=== PATIENT | male | born 1935 | race Caucasian/White ===

== ENCOUNTER → 2022-07-12 | Outpatient (CLI) | payer MEDICARE ==
--- NOTE | 2022-07-12 16:03 | US ---
EXAMINATION TYPE: US kidneys/renal and bladder DATE OF EXAM: 07/12/2022 COMPARISON: NONE CLINICAL HISTORY: R31.1 MICROSCOPIC HEMATURIA. Hematuria EXAM MEASUREMENTS: Right Kidney: 9.8 x 5.9 x 4.1 cm Left Kidney: 10.7 x 5.5 x 4.4 cm Right Kidney: No hydronephrosis or masses seen Left Kidney: No hydronephrosis or masses seen Bladder: wnl Bilateral Jets seen: Yes There is no evidence for hydronephrosis at this point in time. No nephrolithiasis is seen. No nolvia s are identified. The urinary bladder is anechoic. Bilateral ureteral jets are seen. IMPRESSION: No hydronephrosis or nephrolithiasis.
== END | disposition home or self-care (01) ==
LOC: RADUSWWP 14:43
PROVIDERS: ATTEND Urology
DX: R31.1 Benign essential microscopic hematuria (principal)
CPT/HCPCS: 76770

== ENCOUNTER 2022-12-02 13:40 | Observation (INO) | payer MEDICARE ==
--- NOTE | 2022-12-02 14:11 | ED ---
General Adult HPI - General Chief complaint: Shortness of Breath Stated complaint: Left Lung Fluid Time Seen by Provider: 12/02/22 13:59 Source: patient, family, RN notes reviewed Mode of arrival: wheelchair Limitations: no limitations - History of Present Illness Initial comments: Patient is a pleasant 87-year-old male presenting to the emergency department with dyspnea. Onset of symptoms was around 6 months ago, progressively worsening. Patient did have outpatient abdominal CT followed by chest CT with concern for effusions, more so on the left side. Patient does have mild cough. No fevers. No chest pain. - Related Data Allergies Allergy/AdvReac Type Severity Reaction Status Date / Time No Known Allergies Allergy Verified 12/02/22 13:52 Review of Systems ROS Statement: Those systems with pertinent positive or pertinent negative responses have been documented in the HPI. ROS Other: All systems not noted in ROS Statement are negative. Constitutional: Denies: fever Eyes: Denies: eye pain ENT: Denies: ear pain Respiratory: Reports: as per HPI, cough, dyspnea Cardiovascular: Denies: chest pain Endocrine: Reports: fatigue Gastrointestinal: Denies: abdominal pain Genitourinary: Denies: dysuria Musculoskeletal: Denies: back pain Skin: Denies: rash Neurological: Denies: weakness Past Medical History Past Medical History: Cancer, Hyperlipidemia, Hypertension Additional Past Medical History / Comment(s): skin cancer History of Any Multi-Drug Resistant Organisms: None Reported Past Surgical History: Hernia Repair Additional Past Surgical History / Comment(s): throat, 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 Absent: tenderness Extremities exam: Present: normal inspection. Absent: pedal edema, calf tenderness Neurological exam: Present: alert Psychiatric exam: Present: normal affect, normal mood Skin exam: Present: normal color Course Vital Signs 12/02/22 12/02/22 13:47 14:22 Temperature 98.6 F Pulse Rate 89 Respiratory 22 22 Rate Blood Pressure 124/65 O2 Sat by Pulse 97 Oximetry Medical Decision Making - Medical Decision Making Was pt. sent in by a medical professional or institution (KARENA Hammond, ACTUARIAL CONSULTANT, urgent care, hospital, or skilled nursing...) When possible be specific @ -Patient was sent over by Dr. Dodd Did you speak to anyone other than the patient for history (EMS, parent, family, police, friend...)? What history was obtained from this source @ -I did speak with Dr. Dodd regarding patient's presentation as well as recent CT result. He did fax CT report over and this was attached to chart. Did you review nursing and triage notes (agree or disagree)? Why? @ -I reviewed and agree with nursing and triage notes Were old charts reviewed (outside hosp., previous admission, EMS record, old EKG, old radiological studies, urgent care reports/EKG's, skilled nursing records)? Report findings @ -CT report reviewed from previous outsides facility Differential Diagnosis (chest pain, altered mental status, abdominal pain women, abdominal pain men, vaginal bleeding, weakness, fever, dyspnea, syncope, headache, dizziness, GI bleed, back pain, seizure, CVA, palpatations, mental health)? @ -Differential Dyspnea: Coronary syndrome, arrhythmia, tamponade, asthma, COPD, pulmonary embolism, pneumonia, pneumothorax, pulmonary effusion, anaphylaxis, diabetic ketoacidosis, flailed chest, pulmonary contusion, diaphragmatic rupture, anemia, neuromuscular , this is not meant to be an all-inclusive list. EKG interpreted by me (3pts min.). @ -As above X-rays interpreted by me (1pt min.). @ -Chest x-ray shows left greater than right effusion CT interpreted by me (1pt min.). @ -None done U/S interpreted by me (1pt. min.). @ -None done What testing was considered but not performed or refused? (CT, X-rays, U/S, labs)? Why? @ -None What meds were considered but not given or refused? Why? @ -None Did you discuss the management of the patient with other professionals (professionals i.e. KARENA Hammond, ACTUARIAL CONSULTANT, lab, RT, psych nurse, home health care social worker, legal operations manager, teacher, employee service officer, case planner)? Give summary @ -Case was discussed with Dr. Dodd prior to arrival. Case also discussed with Dr. sheet, who will admit covering Dr. Rivers, who admits for Dr. Dodd Was smoking cessation discussed for >3mins.? @ -No Was critical care preformed (if so, how long)? @ -No Were there social determinants of health that impacted care today? How? (Homelessness, low income, unemployed, alcoholism, drug addiction, transportation, low edu. Level, literacy, decrease access to med. care, nursing home, rehab)? @ -No Was there de-escalation of care discussed even if they declined (Discuss DNR or withdrawal of care, Hospice)? DNR status @ -No What co-morbidities impacted this encounter? (DM, HTN, Smoking, COPD, CAD, Cancer, CVA, ARF, Chemo, Hep., AIDS, mental health diagnosis, sleep apnea, morbid obesity)? @ -None Was patient admitted / discharged? Hospital course, mention meds given and route, prescriptions, significant lab abnormalities, going to OR and other pertinent info. @ -Patient is made aware of plan as well as consult pending with pulmonary Undiagnosed new problem with uncertain prognosis? @ -No Drug Therapy requiring intensive monitoring for toxicity (Heparin, Nitro, Insulin, Cardizem)? @ -No Were any procedures done? @ -No Diagnosis/symptom? @ -Pleural effusions Acute, or Chronic, or Acute on Chronic? @ -Acute Uncomplicated (without systemic symptoms) or Complicated (systemic symptoms)? @ -default Side effects of treatment? @ -No Exacerbation, Progression, or Severe Exacerbation? @ -No Poses a threat to life or bodily function? How? (Chest pain, [place], CA, pneumonia, PE, COPD, DKA, ARF, appy, cholecystitis, CVA, Diverticulitis, Homicidal, Suicidal, threat to staff... and all critical care pts) @ -No - Lab Data Result diagrams: 12/02/22 14:24 12/02/22 14:24 Lab Results 12/02/22 12/02/22 12/02/22 Range/Units 14:24 14:24 14:24 WBC 12.6 H (3.8-10.6) k/uL RBC 3.59 L (4.30-5.90) m/uL Hgb 10.3 L (13.0-17.5) gm/dL Hct 31.8 L (39.0-53.0) % MCV 88.6 (80.0-100.0) fL MCH 28.7 (25.0-35.0) pg MCHC 32.4 (31.0-37.0) g/dL RDW 17.2 H (11.5-15.5) % Plt Count 300 (150-450) k/uL MPV 8.4 Neutrophils % 64 % Lymphocytes % 6 % Monocytes % 27 % Eosinophils % 2 % Basophils % 0 % Neutrophils # 8.1 H (1.3-7.7) k/uL Lymphocytes # 0.7 L (1.0-4.8) k/uL Monocytes # 3.4 H (0-1.0) k/uL Eosinophils # 0.2 (0-0.7) k/uL Basophils # 0.0 (0-0.2) k/uL Manual Slide Review Performed Hypochromasia Moderate Anisocytosis Slight PT 11.8 (9.0-12.0) sec INR 1.1 (<1.2) APTT 27.2 (22.0-30.0) sec Sodium 130 L (137-145) mmol/L Potassium 4.5 (3.5-5.1) mmol/L Chloride 95 L (98-107) mmol/L Carbon Dioxide 27 (22-30) mmol/L Anion Gap 8 mmol/L BUN 15 (9-20) mg/dL Creatinine 0.86 (0.66-1.25) mg/dL Est GFR (CKD-EPI)AfAm 89 (>60 ml/min/1.73 sqM) Est GFR (CKD-EPI)NonAf 77 (>60 ml/min/1.73 sqM) Glucose 112 H (74-99) mg/dL Plasma Lactic Acid [place] (0.7-2.0) mmol/L Calcium 8.8 (8.4-10.2) mg/dL Magnesium 2.0 (1.6-2.3) mg/dL Total Bilirubin 0.5 (0.2-1.3) mg/dL AST 21 (17-59) U/L ALT 18 (4-49) U/L Alkaline Phosphatase 74 (38-126) U/L Troponin I (0.000-0.034) ng/mL NT-Pro-B Natriuret Pep pg/mL Total Protein 6.3 (6.3-8.2) g/dL Albumin 3.4 L (3.5-5.0) g/dL 12/02/22 12/02/22 12/02/22 Range/Units 14:24 14:24 14:24 WBC (3.8-10.6) k/uL RBC (4.30-5.90) m/uL Hgb (13.0-17.5) gm/dL Hct (39.0-53.0) % MCV (80.0-100.0) fL MCH (25.0-35.0) pg MCHC (31.0-37.0) g/dL RDW (11.5-15.5) % Plt Count (150-450) k/uL MPV Neutrophils % % Lymphocytes % % Monocytes % % Eosinophils % % Basophils % % Neutrophils # (1.3-7.7) k/uL Lymphocytes # (1.0-4.8) k/uL Monocytes # (0-1.0) k/uL Eosinophils # (0-0.7) k/uL Basophils # (0-0.2) k/uL Manual Slide Review Hypochromasia Anisocytosis PT (9.0-12.0) sec INR (<1.2) APTT (22.0-30.0) sec Sodium (137-145) mmol/L Potassium (3.5-5.1) mmol/L Chloride (98-107) mmol/L Carbon Dioxide (22-30) mmol/L Anion Gap mmol/L BUN (9-20) mg/dL Creatinine (0.66-1.25) mg/dL Est GFR (CKD-EPI)AfAm (>60 ml/min/1.73 sqM) Est GFR (CKD-EPI)NonAf (>60 ml/min/1.73 sqM) Glucose (74-99) mg/dL Plasma Lactic Acid [place] 1.1 (0.7-2.0) mmol/L Calcium (8.4-10.2) mg/dL Magnesium (1.6-2.3) mg/dL Total Bilirubin (0.2-1.3) mg/dL AST (17-59) U/L ALT (4-49) U/L Alkaline Phosphatase (38-126) U/L Troponin I <0.012 (0.000-0.034) ng/mL NT-Pro-B Natriuret Pep 647 pg/mL Total Protein (6.3-8.2) g/dL Albumin (3.5-5.0) g/dL Disposition Clinical Impression: Pleural effusion Disposition: ADMITTED IP TO THIS HOSP Is patient prescribed a controlled substance at d/c from ED?: No Referrals: Robert Dodd MD [Primary Care Provider] - 1-2 days Time of Disposition: 15:49
[2022-12-02 14:48] LABS: Anisocytosis Slight; Basophils % (A) 0 %; Eosinophils # (A) 0.2 k/uL (0-0.7); Eosinophils % (A) 2 %; HCT 31.8 % (39.0-53.0); HGB 10.3 gm/dL (13.0-17.5); Hypochromasia Moderate; Lymphocytes # (A) 0.7 k/uL (1.0-4.8); Lymphocytes % (A) 6 %; MCH 28.7 pg (25.0-35.0); MCHC 32.4 g/dL (31.0-37.0); MCV 88.6 fL (80.0-100.0); Mean Platelet Volume 8.4; Monocytes # (A) 3.4 k/uL (0-1.0); Monocytes % (A) 27 %; Neutrophils # (A) 8.1 k/uL (1.3-7.7); Neutrophils % (A) 64 %; Platelet Count 300 k/uL (150-450); RBC 3.59 m/uL (4.30-5.90); RDW 17.2 % (11.5-15.5); WBC 12.6 k/uL (3.8-10.6)
--- NOTE | 2022-12-02 14:48 | XR ---
EXAMINATION TYPE: XR chest 2V DATE OF EXAM: 12/02/2022 COMPARISON: NONE TECHNIQUE: PA and lateral views submitted. HISTORY: Difficulty breathing FINDINGS: Bilateral consolidation and small pleural effusion on the right and moderate on the left. Heart is pr ominent and there is atherosclerotic change of aorta. No pneumothorax. There is arthropathy of the sh oulders. Hypertrophic and degenerative change of the spine. IMPRESSION: 1. Bilateral areas of consolidation with a small right and moderate-sized left pleural effusion.
[2022-12-02 14:53] LABS: INR 1.1 (<1.2); Partial Thromboplastin Time 27.2 sec (22.0-30.0); Prothrombin Time 11.8 sec (9.0-12.0)
[2022-12-02 15:05] LABS: ALT 18 U/L (4-49); AST 21 U/L (17-59); African American GFR (CKD) 89 (>60 ml/min/1.73 sqM); Albumin 3.4 g/dL (3.5-5.0); Alkaline Phosphatase 74 U/L (38-126); Anion Gap 8 mmol/L; Blood Urea Nitrogen 15 mg/dL (9-20); Calcium 8.8 mg/dL (8.4-10.2); Carbon Dioxide 27 mmol/L (22-30); Chloride 95 mmol/L (98-107); Glucose 112 mg/dL (74-99); Non-African American GFR(CKD) 77 (>60 ml/min/1.73 sqM); Potassium 4.5 mmol/L (3.5-5.1); Sodium 130 mmol/L (137-145); Total Bilirubin 0.5 mg/dL (0.2-1.3); Total Protein 6.3 g/dL (6.3-8.2)
[2022-12-02] MEDS ORDERED: NALOXONE 0.4 MG/ML 1 ML VIAL IV PRN (15:49)
[2022-12-02] MEDS ORDERED: ACETAMINOPHEN TAB 325 MG TAB PO PRN (15:49)
[2022-12-02] MEDS: carvediloL 3.125 MG TAB PO SCH (20:48)
[2022-12-02] MEDS: AZELASTINE 137MCG/SPRAY NASAL SCH (20:48)
[2022-12-02] MEDS ORDERED: PRAVASTATIN SODIUM 40 MG TAB PO SCH (21:00)
[2022-12-03] MEDS: carvediloL 3.125 MG TAB PO SCH (06:34)
[2022-12-03] MEDS ORDERED: LORATADINE 10 MG TAB PO SCH (09:00)
[2022-12-03] MEDS ORDERED: ASCORBIC ACID 500 MG TAB PO SCH (09:00)
[2022-12-03] MEDS ORDERED: NON FORMULARY DRUG (Omega-3 Fatty Acids [Omega-3] 1,000 MG Capsule) PO SCH (09:00)
[2022-12-03] MEDS ORDERED: LOSARTAN 50 MG TAB PO SCH (09:00)
[2022-12-03] MEDS: TAMSULOSIN 0.4 MG CAP.ER.24H PO SCH ×2 (09:07)
[2022-12-03] MEDS: AZELASTINE 137MCG/SPRAY NASAL SCH (09:07)
[2022-12-03] MEDS ORDERED: ALPRAZolam 0.25 MG TAB PO PRN (10:25)
[2022-12-03 11:47] LABS: HCT 30.9 % (39.6-50.0); HGB 9.5 d/dL (12.0-15.0); MCH 27.7 pg (27.0-32.0); MCHC 30.7 d/dL (32.0-37.0); MCV 90.1 FL (80.0-97.0); Mean Platelet Volume 10.5 FL (9.5-12.2); NRBC Per 100 WBC 0 X 10*3/uL (0.00-0.01); Platelet Count 288 X 10*3/uL (140-440); RBC 3.43 X 10*6/uL (4.40-5.60); RDW 17.4 % (11.5-14.5); WBC 12.12 X 10*3/uL (4.50-10.00)
--- NOTE | 2022-12-03 12:18 | P.CNPUL ---
History of Present Illness Consult date: 12/03/22 Reason for consult: dyspnea, pleural effusion History of present illness: 87-year-old male patient presented to us because of worsening shortness of breath. This been going on for the past 6 months. He initially presented to his primary care physician and the patient was referred for the CAT scan of the chest that showed prominent bilateral pulmonary nodules and bilateral pleural effusion largest on the left. The patient had large masses in the lung the largest measuring 3.5 x 6.5 cm in size in the right lung. Several other pulmonary masses were also noted bilaterally. The patient is a nonsmoker. He has previous history of CML. No hemoptysis. No pleurisy. He has been expressing progressive increase in shortness of breath. He has undergone previous colonoscopy for cancer screening. No issues with urination. No nausea. No vomiting. No diarrhea. No abdominal pain. No chest pain. The patient was referred to the emergency and currently is hospitalized for further care. He is currently on 2 L of Oxymizer nasal cannula to maintain a saturation above 90%.His WBC count is at 12.1, hemoglobin was at 9.5 and a platelet count of 288. Sodium is at 1:30, BUN is at 15 with a creatinine of 0.8. Normal LFTs. Normal troponins. Review of Systems Constitutional: Denies chills, Denies fever Eyes: denies as per HPI, denies blurred vision, denies bulging eye, denies decreased vision, denies diplopia, denies discharge, denies dry eye, denies irritation, denies itching, denies pain, denies photophobia, denies loss of peripheral vision, denies loss of vision, denies tunnel vision/blind spots Ears: deny: decreased hearing, ear discharge, earache, tinnitus Ears, nose, mouth and throat: Reports as per HPI Breasts: absent: as per HPI, gynecomastia Cardiovascular: Reports decreased exercise tolerance, Reports dyspnea on exertion Respiratory: Reports dyspnea Gastrointestinal: Reports as per HPI Genitourinary: Reports as per HPI Musculoskeletal: Reports as per HPI Musculoskeletal: absent: ankle pain, ankle stiffness, ankle swelling Integumentary: Reports as per HPI Neurological: Reports as per HPI Psychiatric: Reports as per HPI Endocrine: Reports as per HPI Hematologic/Lymphatic: Reports as per HPI Allergic/Immunologic: Reports as per HPI Past Medical History Past Medical History: Cancer, Hyperlipidemia, Hypertension Additional Past Medical History / Comment(s): skin cancer, CML -leukemia, pt states "irratic heart beat at times" History of Any Multi-Drug Resistant Organisms: None Reported Past Surgical History: Hernia Repair Additional Past Surgical History / Comment(s): 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 Past Psychological History: No Psychological Hx Reported Smoking Status: Former smoker Past Drug Use History: None Reported Medications and Allergies Home Medications Medication Instructions Recorded Confirmed Type Ascorbic Acid [Vitamin C] 1,000 mg PO DAILY 12/02/22 12/02/22 History Aspirin 81 mg PO DAILY 12/02/22 12/02/22 History Azelastine HCl [Astelin Nasal 2 spray NASAL BID 12/02/22 12/02/22 History [place]] Cholecalciferol (Vitamin D3) 75 mcg PO DAILY 12/02/22 12/02/22 History [Vitamin D3 (3000 Iu)] Cyanocobalamin (Vitamin B-12) 1,000 mcg PO DAILY 12/02/22 12/02/22 History [Vitamin B-12] Loratadine [Claritin] 10 mg PO DAILY 12/02/22 12/02/22 History Losartan [Cozaar] 50 mg PO DAILY 12/02/22 12/02/22 History Meloxicam [Mobic] 15 mg PO DAILY 12/02/22 12/02/22 History Multivit-Mins/Iron/Folic/Lycop 1 tab PO DAILY 12/02/22 12/02/22 History [Centrum Men's Tablet] [place]-3 Fatty Acids [[place]-3] 1,000 mg PO DAILY 12/02/22 12/02/22 History Pravastatin Sodium [Pravachol] 40 mg PO HS 12/02/22 12/02/22 History Tamsulosin [Flomax] 0.4 mg PO DAILY 12/02/22 12/02/22 History Zinc Gluconate [Zinc] 50 mg PO DAILY 12/02/22 12/02/22 History carvediloL [Coreg] 3.125 mg PO BID 12/02/22 12/02/22 History Allergies Allergy/AdvReac Type Severity Reaction Status Date / Time No Known Allergies Allergy Verified 12/02/22 16:21 Physical Exam Vitals: Vital Signs Temp Pulse Pulse Resp BP BP Pulse Ox 12/03/22 06:33 97.9 F 85 19 143/72 95 12/03/22 02:00 98.0 F 86 18 144/66 94 L 12/02/22 19:55 97.8 F 86 18 158/70 97 12/02/22 19:04 78 18 124/87 94 L 12/02/22 17:30 100 28 H 166/86 95 12/02/22 16:47 88 22 143/75 94 L 12/02/22 14:22 22 12/02/22 13:47 98.6 F 89 22 124/65 97 Intake and Output 12/02/22 12/03/22 12/03/22 22:59 06:59 14:59 Output Total 300 150 Balance -300 -150 Output: Urine 300 150 Other: Voiding Method Toilet Urinal # Voids 0 Weight 73.936 kg Calm and comfortable, a bit anxious currently on 2 L of oxygen by nasal cannula Head exam was generally normal. There was no scleral icterus or corneal arcus. Mucous membranes were moist. Neck was supple and without jugular venous distension, thyromegaly, or carotid bruits. Carotids were easily palpable bilaterally. There was no adenopathy. Lungs sounds are diminished on the left base along with her was to percussion. There is also diminished breath on the right lung base. Cardiac exam revealed the PMI to be normally situated and sized. The rhythm was regular and no extrasystoles were noted during several minutes of auscultation. The first and second heart sounds were normal and physiologic splitting of the second heart sound was noted. There were no murmurs, rubs, clicks, or gallops. Abdominal exam revealed normal bowel sounds. The abdomen was soft, non-tender, and without masses, organomegaly, or appreciable enlargement of the abdominal aorta. Examination of the extremities revealed easily palpable radial, femoral and pedal pulses. There was no cyanosis, clubbing or edema. Examination of the skin revealed no evidence of significant rashes, suspicious appearing nevi or other concerning lesions. Results - Laboratory Findings CBC and BMP: 12/03/22 06:02 12/02/22 14:24 PT/INR, D-dimer PT 11.8 sec (9.0-12.0) 12/02/22 14:24 INR 1.1 (<1.2) 12/02/22 14:24 Abnormal lab findings: Abnormal Labs 12/02/22 12/02/22 12/03/22 14:24 14:24 06:02 WBC 12.6 H 12.12 H RBC 3.59 L 3.43 L Hgb 10.3 L 9.5 L Hct 31.8 L 30.9 L MCHC 30.7 L RDW 17.2 H 17.4 H Neutrophils # 8.1 H Lymphocytes # 0.7 L Monocytes # 3.4 H Sodium 130 L Chloride 95 L Glucose 112 H Albumin 3.4 L - Diagnostic Findings Chest x-ray: image reviewed Assessment and Plan Plan: Bilateral lung masses largest in the right lung measuring up to 6.5 cm the patient has multiple other smaller nodules bilaterally consistent with metastatic disease. Bilateral pleural effusion left more than right Acute hypoxic respiratory failure secondary to above Shortness of breath secondary to above History of CML Hypertension Hyperlipidemia History of skin cancer Plan Proceed with a diagnostic and therapeutic thoracentesis of the left lung We'll send the pleural fluid for cytology and analysis Highly suspicious for malignancy. We'll make further recommendations based on the pleural fluid cytology. In the pleural fluid results be negative, he may need a bronchoscopic biopsy. This can be done on outpatient basis.
--- NOTE | 2022-12-03 12:18 | P.PCN ---
Date of Procedure: 12/03/22 Preoperative Diagnosis: Left-sided pleural effusion Postoperative Diagnosis: Left-sided pleural effusion Procedure(s) Performed: Left-sided thoracentesis Anesthesia: local Surgeon: Cami Loco Pathology: other Condition: stable Disposition: floor Operative Findings: A time out was performed and the chest x-ray was reviewed, the appropriate side was confirmed and marked. My hands were washed immediately prior to the procedure. I wore a surgical cap, mask with protective eyewear, sterile gown and sterile gloves throughout the procedure. The patient was prepped and draped in a sterile manner using chlorhexidine scrub after the appropriate level was percussed and confirmed by ultrasound. 1% lidocaine was used to anesthesize the skin, subcutaneous tissue, superior aspect of the rib periosteum and parietal pleura. A finder needle was then introduced over the superior aspect of the rib to locate the pleural fluid; 2colored fluid was aspirated at a depth of approximately 2 cm. A 10-blade scalpel was used to sergio the skin at the insertion site. The [id number] needle was then introduced through the skin incision into the pleural space using negative aspiration pressure and the red colometric indicator to confirm appropriate positioning of the needle. The thoracentesis catheter was then threaded without difficulty. 2000 ml of turbid colored fluid was removed without difficulty. The catheter was then removed. No immediate complications were noted during the procedure. A post-procedure chest x-ray is pending at the time of this note. The fluid will be sent for studies. Estimated blood loss is 0cc
[2022-12-03 12:22] LABS: BUN/Creat Ratio 14.56 Ratio (12.00-20.00); Blood Urea Nitrogen 13.1 mg/dL (9.0-27.0); Calcium 9.3 mg/dL (8.7-10.3); Carbon Dioxide 24.3 mmol/L (21.6-31.8); Chloride 96 mmol/L (96-109); Glucose 94 mg/dL (70-110); Potassium 4.2 mmol/L (3.5-5.5); Sodium 132 mmol/L (135-145)
[2022-12-03 12:37] LABS: Basophils # (M) 0 X 10*3/uL (0.00-0.10)
--- NOTE | 2022-12-03 12:48 | XR ---
EXAMINATION TYPE: XR chest 1V DATE OF EXAM: 12/03/2022 HISTORY: left thoracentesis post COMPARISON: 12/02/2022 TECHNIQUE: Single view of the chest is submitted. FINDINGS: Diminution in left-sided pleural effusion compatible with the provided history of the thoracentesis. No evidence for sizable pneumothorax. Lobulated masses right lung. The heart is stable. Hilar and mediastinal structures are within normal limits. Degenerative changes are seen of the dorsal spine. IMPRESSION: 1. Diminution in left-sided pleural effusion compatible with the provided history of the thoracentes is. No evidence for sizable pneumothorax. Lobulated masses right lung.
--- NOTE | 2022-12-03 13:04 | P.HPIM ---
History of Present Illness This is a pleasant 87 years old male with past medical history of hypertension and hyperlipidemia Patient presents because of slowly progressive dyspnea over 2 weeks with no chest pain or coughing. Patient denies any GI, urinary or neurological symptoms No smoking alcohol or illicit tracts pt sent in for results of outpt ct -shows fluid in left lung Vitals are stable and patient is afebrile and saturation 97% on 3 L oxygen via nasal cannula mild leukocytosis 12.6, hemoglobin 10.3, rest of cbc, inr and bmp is unremarkable, sodium 1:30. 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 Past Psychological History: No Psychological Hx Reported Smoking Status: Former smoker Past Drug Use History: None Reported Medications and Allergies Home Medications Medication Instructions Recorded Confirmed Type Ascorbic Acid [Vitamin C] 1,000 mg PO DAILY 12/02/22 12/02/22 History Aspirin 81 mg PO DAILY 12/02/22 12/02/22 History Azelastine HCl [Astelin Nasal 2 spray NASAL BID 12/02/22 12/02/22 History [place]] Cholecalciferol (Vitamin D3) 75 mcg PO DAILY 12/02/22 12/02/22 History [Vitamin D3 (3000 Iu)] Cyanocobalamin (Vitamin B-12) 1,000 mcg PO DAILY 12/02/22 12/02/22 History [Vitamin B-12] Loratadine [Claritin] 10 mg PO DAILY 12/02/22 12/02/22 History Losartan [Cozaar] 50 mg PO DAILY 12/02/22 12/02/22 History Meloxicam [Mobic] 15 mg PO DAILY 12/02/22 12/02/22 History Multivit-Mins/Iron/Folic/Lycop 1 tab PO DAILY 12/02/22 12/02/22 History [Centrum Men's Tablet] [place]-3 Fatty Acids [[place]-3] 1,000 mg PO DAILY 12/02/22 12/02/22 History Pravastatin Sodium [Pravachol] 40 mg PO HS 12/02/22 12/02/22 History Tamsulosin [Flomax] 0.4 mg PO DAILY 12/02/22 12/02/22 History Zinc Gluconate [Zinc] 50 mg PO DAILY 12/02/22 12/02/22 History carvediloL [Coreg] 3.125 mg PO BID 12/02/22 12/02/22 History Allergies Allergy/AdvReac Type Severity Reaction Status Date / Time No Known Allergies Allergy Verified 12/02/22 16:21 Physical Exam Vitals: Vital Signs Temp Pulse Pulse Resp BP BP Pulse Ox 12/02/22 19:55 97.8 F 86 18 158/70 97 12/02/22 19:04 78 18 124/87 94 L 12/02/22 17:30 100 28 H 166/86 95 12/02/22 16:47 88 22 143/75 94 L 12/02/22 14:22 22 12/02/22 13:47 98.6 F 89 22 124/65 97 Intake and Output 12/02/22 12/02/22 12/03/22 14:59 22:59 06:59 Other: Voiding Method Toilet Urinal # Voids 0 Weight 73.936 kg 73.936 kg GENERAL: The patient is alert and oriented x3, not in any acute distress. Well developed, well nourished. HEENT: Pupils are round and equally reacting to light. EOMI. No scleral icterus. No conjunctival pallor. Normocephalic, atraumatic. No pharyngeal erythema. No thyromegaly. CARDIOVASCULAR: S1 and S2 present. No murmurs, rubs, or gallops. PULMONARY: Chest is clear to auscultation, no wheezing , no crackles. ABDOMEN: Soft, nontender, nondistended, normoactive bowel sounds. No palpable organomegaly. MUSCULOSKELETAL: No joint swelling or deformity. EXTREMITIES: No cyanosis, clubbing, or pedal edema. NEUROLOGICAL: Gross neurological examination did not reveal any focal deficits. SKIN: No rashes. no petechiae. Results CBC & Chem 7: 12/03/22 06:02 12/03/22 06:02 Labs: Abnormal Lab Results - Last 24 Hours (Table) 12/02/22 12/02/22 Range/Units 14:24 14:24 WBC 12.6 H (3.8-10.6) k/uL RBC 3.59 L (4.30-5.90) m/uL Hgb 10.3 L (13.0-17.5) gm/dL Hct 31.8 L (39.0-53.0) % RDW 17.2 H (11.5-15.5) % Neutrophils # 8.1 H (1.3-7.7) k/uL Lymphocytes # 0.7 L (1.0-4.8) k/uL Monocytes # 3.4 H (0-1.0) k/uL Sodium 130 L (137-145) mmol/L Chloride 95 L (98-107) mmol/L Glucose 112 H (74-99) mg/dL Albumin 3.4 L (3.5-5.0) g/dL Assessment and Plan Assessment: Bilateral pleural effusion left more than right mild acute hypoxic respiratory failure secondary to above Mild hyponatremia Hypertension Hyperlipidemia Plan: Pulmonary consult Patient will need thoracocentesis Possible discharge today or tomorrow once cleared by pulmonary service We will check for home oxygen prior to discharge Labs and medication were reviewed.. Continue same treatment. Continue with symptomatic treatment. Resume home medication. Monitor labs and vitals. DVT and GI prophylaxis. Further recommendations as per clinical course of the patient Prognosis is guarded
[2022-12-03 13:33] LABS: Eosinophils # (M) 0.48 X 10*3/uL (0.04-0.35); Lymphocytes # (M) 0.48 X 10*3/uL (0.90-5.00); Metamyelocytes % 1 % (0-0); Monocytes # (M) 3.15 X 10*3/uL (0.20-1.00); Neutrophils # (M) 7.88 X 10*3/uL (1.80-7.70); Neutrophils % (M) 65 %; RBC Morphology Normal (Normal)
[2022-12-03 13:56] VITALS: BP 118/65; PULSE 88; RESP 17; TEMP 97.6
[2022-12-03 23:54] LABS: Cholesterol,BF Source Pleural Fluid; Cholesterol,Body Fluid 66 mg/dL; Glucose, BF Source Pleural Fluid; Glucose, Body Fluid 102 mg/dL; LDH, Body Fluid Source Pleural Fluid; T. Protein, Body Fluid Source Pleural Fluid; Total Protein, Body Fluid >3600 mg/dL
[2022-12-04 00:09] LABS: Appearance,BF Blood Tinged (Clear)
== END 2022-12-03 16:17 | disposition home or self-care (01) ==
LOC: EC 13:40 → 6NMEDSUR 15:49
PROVIDERS: ADMIT Internal Medicine; ATTEND Internal Medicine
DX: J91.8 Pleural effusion in other conditions classified elsewhere (principal); J96.01 Acute respiratory failure with hypoxia; E87.1 Hypo-osmolality and hyponatremia; I10 Essential (primary) hypertension; E78.5 Hyperlipidemia, unspecified; R91.8 Other nonspecific abnormal finding of lung field; Z79.82 Long term (current) use of aspirin; Z79.1 Long term (current) use of non-steroidal anti-inflammatories (NSAID); Z79.899 Other long term (current) drug therapy; Z85.828 Personal history of other malignant neoplasm of skin; Z98.890 Other specified postprocedural states; Z87.891 Personal history of nicotine dependence; Z85.6 Personal history of leukemia
CPT/HCPCS: 99285; 36415; 93005; 83880; 80053; 80048; 89050; 83605; 83735; 84484; 85025 ×2; 85610; 85730; 87070; 87205; 87075; 87116; 87102; 87206; 82945; 83615; 84157; 82465; 71045; 71046; 32555; G0378 ×2; 87252; 88108; 88305; 88341; 88342